=== PATIENT | female | born 1980 ===

== ENCOUNTER → 2020-05-07 | Day surgery (SDC) | payer BC ==
[~2020-05-07] MED LIST: Bupivacaine 0.5% 30 ML SDV ONE; Clindamycin Phosphate in D5W 50 ML ONE; Clindamycin Phosphate in D5W 600 MG in Premix Bag 1 BAG IV ONE; Dexamethasone 4 MG/ML 5 ML MDV ONE; Glycopyrrolate 0.2 MG/ML SDV ONE; HYDROmorphone 2 MG/ML Syringe ONE; Ketamine 500 mg/10 ML MDV ONE; Ketorolac 30 MG/ML SDV ONE; Lactated Ringers 1,000 ML IV SCH; Lidocaine 2% 5 ML SDV ONE; Midazolam 1 MG/ML 2 ML SDV ONE; Octyl 2-Cyanoacrylate 1 Tube ONE; Ondansetron 4 MG/2 ML SDV ONE; Propofol 200 MG/20 ML SDV ONE; Rocuronium Bromide 50 MG/5 ML Syringe ONE; Sodium Chloride 0.9% 10 ML SDV IV PRN; Sodium Chloride 0.9% 10 ML Syringe FLUSH PRN; Sodium Chloride 0.9% 2.5 ML Syringe FLUSH PRN; Sugammadex Sodium 200 MG/2 ML VIAL ONE; fentaNYL 100 MCG/2 ML SDV ONE
--- NOTE | 2020-05-07 10:58 | PCM.PREANE ---
Preanesthetic Assessment - Anesthesia/Transfusion/Family Hx Anesthesia History: Prior Anesthesia Without Reaction Family History of Anesthesia Reaction: No Transfusion History: No Prior Transfusion(s) Intubation History: Unknown - Review of Systems General: No Symptoms Pulmonary: No Symptoms Cardiovascular: No Symptoms Gastrointestinal: Abdominal Pain Neurological: No Symptoms Other: Reports: None - Physical Assessment Height: 5 ft 9 in Weight: 113.398 kg ASA Class: 3 Mental Status: Alert & Oriented x3 Airway Class: Mallampati = 3 Dentition: Reports: Normal Dentition (lower retainer) Thyro-Mental Finger Breadths: 3 Mouth Opening Finger Breadths: 3 ROM/Head Extension: Full Lungs: Clear to Auscultation, Normal Respiratory Effort Cardiovascular: Regular Rate, Regular Rhythm - Allergies Allergies/Adverse Reactions: Allergies Allergy/AdvReac Type Severity Reaction Status Date / Time amoxicillin Allergy Cannot Verified 05/01/20 09:34 Remember cephalexin [From Keflex] Allergy Itching Verified 05/01/20 10:13 - Blood Blood Available: No - Anesthesia Plan Pre-Op Medication Ordered: None - Acknowledgements Anesthesia Type Planned: General Anesthesia Pt an Appropriate Candidate for the Planned Anesthesia: Yes Alternatives and Risks of Anesthesia Discussed w Pt/Guardian: Yes Pt/Guardian Understands and Agrees with Anesthesia Plan: Yes PreAnesthesia Questionnaire HEENT History: Reports: Impaired Vision Other HEENT History: wears glasses Cardiovascular History: Reports: High Cholesterol, Hypertension Respiratory History: Reports: Sleep Apnea (on CPAP) Gastrointestinal History: Reports: Cholelithiasis, Fatty Liver Other Gastrointestinal History: states has been having epigastric pain at times Genitourinary History: Reports: None 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: 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: None Musculoskeletal History: Reports: None Neurological History: Reports: Migraines, Other (See Below) (restless leg syndrome) Psychiatric History: Reports: Anxiety, Depression Endocrine/Metabolic History: Reports: Diabetes, Type II, Hypothyroidism, Obesity/BMI 30+ (BMI 36.9) Hematologic History: Reports: None Immunologic History: Reports: None Oncologic (Cancer) History: Reports: None Dermatologic History: Reports: None - Infectious Disease History Infectious Disease History: Reports: None - Past Surgical History Head Surgeries/Procedures: Reports: None HEENT Surgical History: Reports: Tonsillectomy Cardiovascular Surgical History: Reports: None GI Surgical History: Reports: Bariatric Procedure (lost 130 lb. since surgery) Other GI Surgeries/Procedures: rax-en Y gastric bypass surgery Mar 2019 Female Surgical History: Reports: None Neurological Surgical History: Reports: None Musculoskeletal Surgical History: Reports: None Oncologic Surgical History: Reports: None - SUBSTANCE USE Tobacco Use Status *Q: Never Tobacco User - HOME MEDS Home Medications: Home Meds Cyanocobalamin/Folic AC/Vit B6 [Folbee] 1 tab PO DAILY 05/01/20 [History] DULoxetine HCl [Drizalma Sprinkle] 1 tab PO DAILY 05/01/20 [History] Furosemide 1 tab PO ASDIRECTED 05/01/20 [History] LORazepam [Ativan] 1 tab PO ASDIRECTED PRN 05/01/20 [History] Losartan Potassium [Cozaar] 1 tab PO DAILY 05/01/20 [History] SUMAtriptan succinate [Sumatriptan Succinate] 1 tab PO ASDIRECTED PRN 05/01/20 [History] Simvastatin 1 tab PO DAILY 05/01/20 [History] norgestimate-ethinyl estradioL [Tri Femynor 28 Tablet] 1 tab PO DAILY 05/01/20 [History] rOPINIRole [Requip] 1 tab PO BEDTIME 05/01/20 [History] - CURRENT (IN HOUSE) MEDS Current Meds: Current Medications Lactated Ringer's (Ringers, Lactated) 1,000 mls @ 125 mls/hr IV ASDIRECTED MEAGHAN Sodium Chloride (Saline Flush) 2.5 ml FLUSH ASDIRECTED PRN PRN Reason: Keep Vein Open Sodium Chloride (Normal Saline) 10 ml IV ASDIRECTED PRN PRN Reason: IV Use Sodium Chloride (Saline Flush) 10 ml FLUSH ASDIRECTED PRN PRN Reason: Keep Vein Open Discontinued Medications Bupivacaine HCl (Marcaine 0.5%) Confirm Administered Dose 30 ml .ROUTE .STK-MED ONE Stop: 05/07/20 09:56 Dexamethasone (Dexamethasone) Confirm Administered Dose 20 mg .ROUTE .STK-MED ONE Stop: 05/07/20 10:11 Fentanyl (Sublimaze) Confirm Administered Dose 100 mcg .ROUTE .STK-MED ONE Stop: 05/07/20 10:11 Glycopyrrolate (Robinul) Confirm Administered Dose 0.4 mg .ROUTE .STK-MED ONE Stop: 05/07/20 10:15 Hydromorphone HCl (Dilaudid) Confirm Administered Dose 2 mg .ROUTE .STK-MED ONE Stop: 05/07/20 10:11 Clindamycin Phosphate 600 mg/ (Premix) 50 mls @ 100 mls/hr IV ONETIME ONE Stop: 05/06/20 12:59 Clindamycin Phosphate (Cleocin In D5w) Confirm Administered Dose 50 mls @ as directed .ROUTE .STK-MED ONE Stop: 05/07/20 09:03 Ketamine HCl (Ketalar) Confirm Administered Dose 500 mg .ROUTE .STK-MED ONE Stop: 05/07/20 10:11 Ketorolac Tromethamine (Toradol) Confirm Administered Dose 30 mg .ROUTE .STK-MED ONE Stop: 05/07/20 10:08 Lidocaine (Xylocaine-Mpf 2%) Confirm Administered Dose 5 ml .ROUTE .STK-MED ONE Stop: 05/07/20 10:11 Midazolam HCl (Versed 1 Mg/Ml) Confirm Administered Dose 2 mg .ROUTE .STK-MED ONE Stop: 05/07/20 10:11 Ondansetron HCl (Zofran) Confirm Administered Dose 4 mg .ROUTE .STK-MED ONE Stop: 05/07/20 10:11 Propofol (Diprivan 20 Ml) Confirm Administered Dose 600 mg .ROUTE .STK-MED ONE Stop: 05/07/20 10:11 Rocuronium [place] (Rocuronium [place]) Confirm Administered Dose 50 mg .ROUTE .STK-MED ONE Stop: 05/07/20 10:15
--- NOTE | 2020-05-07 14:04 | PCM.OPNOTE ---
- General Post-Op/Procedure Note Date of Surgery/Procedure: 05/07/20 Operative Procedure(s): Laparoscopic cholecystectomy, lysis of adhesions Findings: Gallbladder encased in omental adhesions. Gallbladder grossly distended. Pre Op Diagnosis: Symptomatic cholelithiasis Post-Op Diagnosis: same, intra-abdominal adhesions Anesthesia Technique: General ET Tube Primary Surgeon: Mary Ellen Silva Fluid Replacement, Intraop: 1,500 Output, Urine Amount: 100 EBL in mLs: 10 Condition: Good Free Text/Narrative:: Intake & Output 05/06/20 05/07/20 05/07/20 22:59 06:59 14:59 Output Total 100 Balance -100
--- NOTE | 2020-05-07 14:31 | PCM.POSTAN ---
POST ANESTHESIA ASSESSMENT - MENTAL STATUS Mental Status: Alert, Oriented - VITAL SIGNS Vital Signs: Last Vital Signs Temp 36.6 C 05/07/20 11:04 Pulse 76 05/07/20 14:23 Resp 14 05/07/20 14:23 BP 124/76 05/07/20 14:23 Pulse Ox 94 L 05/07/20 14:23 - RESPIRATORY Respiratory Status: Respiratory Rate WNL, Airway Patent, O2 Saturation Stable - CARDIOVASCULAR CV Status: Pulse Rate WNL, Blood Pressure Stable - GASTROINTESTINAL GI Status: No Symptoms Free Text/Narrative:: Denies nausea - PAIN Pain Score: 2 Free Text/Narrative:: Reports satisfactory pain control - POST OP HYDRATION Hydration Status: Adequate & Stable
--- NOTE | 2020-05-07 15:24 | PCM48HPAN ---
Post Anesthesia Note - EVALUATION WITHIN 48HRS OF ANESTHETIC Vital Signs in Normal Range: Yes Patient Participated in Evaluation: Yes Respiratory Function Stable: Yes Airway Patent: Yes Cardiovascular Function Stable: Yes Hydration Status Stable: Yes Pain Control Satisfactory: Yes Nausea and Vomiting Control Satisfactory: Yes Mental Status Recovered: Yes Vital Signs: Last Vital Signs Temp 36.6 C 05/07/20 11:04 Pulse 76 05/07/20 14:23 Resp 14 05/07/20 14:23 BP 124/76 05/07/20 14:23 Pulse Ox 94 L 05/07/20 14:23 - COMMENTS/OBSERVATIONS Free Text/Narrative:: No anesthesia problems
--- NOTE | 2020-05-08 20:23 | OR ---
SURGEON: MARY ELLEN SILVA MD DATE OF PROCEDURE: 05/07/2020 PREOPERATIVE DIAGNOSIS: Symptomatic cholelithiasis. POSTOPERATIVE DIAGNOSIS: Symptomatic cholelithiasis, intraabdominal adhesions. PROCEDURE PERFORMED: Laparoscopic cholecystectomy, lysis of abdominal adhesions. PRIMARY SURGEON: Mary Ellen Silva MD. ANESTHESIA: General endotracheal anesthesia. FLUIDS: 1500 mL of crystalloid. ESTIMATED BLOOD LOSS: 5 mL. URINE OUTPUT: 100 mL. FINDINGS: Grossly enlarged gallbladder encased in thick omental adhesions. COMPLICATIONS: None. INDICATIONS: The patient is a 39-year-old female who presented to clinic with symptomatic cholelithiasis after losing a significant amount of weight after a Jeffery-en-Y gastric bypass. The patient and I discussed the need for a cholecystectomy. I would attempt it laparoscopically and convert to open should I be unable to perform it safely. We discussed the expected perioperative course as well as the risks including bleeding, infection, or damage to surrounding structures. She verbalized understanding and wishes to proceed. PROCEDURE IN DETAIL: The patient was brought into the OR and placed on the OR table in supine position. A time-out was completed verifying the patient's name, age, date of , allergies, and procedure to be performed. General endotracheal anesthesia was induced. The patient's left arm was tucked at her side and a Maldonado catheter placed. The abdomen was prepped and draped in usual standard fashion. I anesthetized the supraumbilical fold with 0.5% Marcaine plain. A 3 cm incision was made using an 11 blade along the supraumbilical midline. Cautery was used to dissect down through the layers of the subcutaneous fat. I then bluntly dissected down to the fascia using appendiceal retractors. The fascia was elevated with Jamaal's and incised sharply with Metzenbaum scissors. The patient had a large amount of preperitoneal fat. This was swept away using a Adilia clamp and I identified the peritoneum. The peritoneum was elevated with hemostats and incised sharply with the Metzenbaum scissors. After doing this, I was able to palpate inside the abdomen using my finger. 0 Vicryl sutures were placed on either side of the fascia. A 12 mm Yvonne trocar was placed into the abdomen and it was insufflated. I inserted a 5 mm 30-degree scope and inspected the area underneath my initial trocar placement. No damage to surrounding structures was noted. The patient was then placed into reverse Trendelenburg position and airplaned slightly to the left. Before placing any of my trocars, I inspected the abdomen. I could see the patient's Jeffery limb coming up to the gastric pouch. On inspection of the liver edge, there were dense omental adhesions and I was unable to see the gallbladder itself. 5 mm trocars were placed in the following locations under direct visualization; one in the epigastric area, one in the right flank, and one 3 fingerbreadths below the right subcostal margin in the midclavicular line. Given that the patient had previous abdominal surgery, the decision was made to take down her adhesions along the liver edge using gentle blunt dissection as well as hook cautery. Using this method, I was eventually able to identify the gallbladder itself. The gallbladder appeared grossly distended. I took down the adhesions along the liver edge overlying the apex of the gallbladder. I then entered a plane in which I was able to then safely take down the omental adhesions and completely free the gallbladder up from the surrounding tissues. I identified the duodenum and flipped this away. The dome of the gallbladder once freed from its surrounding attachments was then grasped with an atraumatic grasper and elevated cranially. The gallbladder was grossly distended. To facilitate my dissection, I placed an aspirating needle into the body of the gallbladder and aspirated 90 mL of green-appearing bile. This allowed more redundancy and made it easier for me to continue my dissection along the infundibulum. The infundibulum was grasped with an atraumatic grasper and I began my dissection proximally. I identified the node of Calot. This was swept down. Then, using blunt dissection and a small amount of hook cautery, I was able to achieve my critical view. A photograph of this was taken. I doubly clipped and ligated my cystic duct and artery. The remainder of the attachments of the gallbladder to the liver bed were taken down with hook cautery. The gallbladder was then placed in an Endo Catch bag and removed through the supraumbilical port site. I reinserted my port and inspected my operative field. There was no evidence of bleeding or bile leakage. My 5 mm trocars were then removed under direct visualization, and the abdomen allowed to desufflate. The 12 mm trocar was then removed as well. I closed the fascia at the supraumbilical port site using interrupted 0 Vicryl sutures. The subcutaneous fat layer was closed in multiple layers using interrupted 0 Vicryl sutures. The skin was closed with interrupted 4-0 Monocryl sutures. My 5 mm trocar sites were closed with interrupted 4-0 Monocryl as well. Dermabond and sterile dressings were applied. The patient tolerated the procedure well and was transferred to the PACU in stable condition. All counts were complete and correct at the end of the case indication. BERTHA SAN /[id number]
== END | disposition home or self-care (01) ==
LOC: MW.SDS 10:16
PROVIDERS: ATTEND Surgery
DX: K80.10 Calculus of gallbladder with chronic cholecystitis without obstruction (principal); K66.0 Peritoneal adhesions (postprocedural) (postinfection); F41.9 Anxiety disorder, unspecified; F32.9 Major depressive disorder, single episode, unspecified; E11.9 Type 2 diabetes mellitus without complications; G43.909 Migraine, unspecified, not intractable, without status migrainosus; E78.00 Pure hypercholesterolemia, unspecified; I10 Essential (primary) hypertension; E03.9 Hypothyroidism, unspecified; E66.9 Obesity, unspecified; Z88.0 Allergy status to penicillin; Z88.8 Allergy status to other drugs, medicaments and biological substances; Z79.899 Other long term (current) drug therapy; Z98.890 Other specified postprocedural states; Z68.36 Body mass index [BMI] 36.0-36.9, adult
CPT/HCPCS: 47562; 88304; A9270; J1100; J1170; J1885; J2001; J2250; J2405; J2704; J3010; J3490; J7120; 00790